=== PATIENT | male | born 1985 | race Caucasian/White ===

== ENCOUNTER 2022-11-24 10:31 | Outpatient (REF) | payer MEDICAID, OTHER, SELFPAY ==
[2022-11-24 13:10] LABS: MANUAL DIFF FLAG NO
[2022-11-24 13:35] LABS: Basophils Percent Auto 0.6 % (0-2); Eosinophils Absolute Auto 0.1 X10*3/uL (0.0-0.4); Eosinophils Percent Auto 1.6 % (0-4); Hematocrit 49.4 % (42.0-52.0); Hemoglobin 16.1 g/dl (14.0-18.0); Imm Gran Abs Auto 0.01 X10*3/uL (0.00-0.03); Imm Gran Pct Auto 0.2 % (0.0-0.4); Lymphocytes Absolute Auto 1.6 X10*3/uL (1.2-4.9); Lymphocytes Percent Auto 31.3 % (20-40); Mean Corpuscular HGB Conc 32.6 g/dl (31.0-36.0); Mean Corpuscular Hemoglobin 28.9 pg (27.0-33.0); Mean Corpuscular Volume 88.5 fL (80.0-98.0); Mean Platelet Volume 10.9 fL (9.4-12.4); Monocytes Absolute Auto 0.5 X10*3/uL (0.1-1.2); Monocytes Percent Auto 10.8 % (2-11); Neutrophils Absolute Auto 2.8 x10*3/uL (2.0-8.3); Neutrophils Percent Auto 55.5 % (45-73); Platelet Count 255 X10*3/uL (160-400); Red Blood Count 5.58 X10*6/uL (4.60-5.80); Red Cell Distribution Width 11.7 % (11.0-16.0)
[2022-11-24 15:13] LABS: CT PCR NOT DETECTED (Not Detect.); NG PCR NOT DETECTED (Not Detect.)
[2022-11-24 15:19] LABS: Estimated Average Glucose 94 mg/dL; Hemoglobin A1c % 4.9 %
[2022-11-25 02:04] LABS: Alanine Aminotransferase 28 U/L (0-40); Albumin Level 4.6 g/dL (3.5-5.0); Alkaline Phosphatase 48 U/L (39-117); Anion Gap 10 (12-20); Aspartate Amino Transferase 18 U/L (5-37); Bilirubin Total 1.1 mg/dL (0.0-1.0); Blood Urea Nitrogen 12 mg/dL (9-16); Calcium 9.5 mg/dL (8.4-10.2); Carbon Dioxide 28 mmol/L (22-29); Chloride 105 mmol/L (96-108); Cholesterol 198 mg/dL; Estimated Glomerular Filt Rate > 60; Glucose Random 93 mg/dL (60-115); HDL Cholesterol 49 mg/dL; LDL Cholesterol Calculated 132 mg/dl; Potassium 4.1 mmol/L (3.3-5.1); Sodium 139 mmol/L (135-145); TSH reflex Free T4 0.96 uIU/mL (0.32-4.0); Total Protein 7.5 g/dL (6.5-8.0); Triglycerides 87 mg/dL
[2022-11-25 05:13] LABS: HBS Num1 0.28 mIU/mL (0-7.99); HBc Num1 0.18 S/CO (0.00-0.79); HIV AB/AG Nonreactive (Nonreactive); HIV Num 1 0.05 S/CO (0.00-0.99); Hepatitis B Core Antibody Nonreactive (Nonreactive); Hepatitis B Surface Antigen Negative (Negative); ~Hepatitis B Surface Antibody NONREACTIVE (Nonreactive)
[2022-11-25 05:18] LABS: ~HepC Num1 0.11 S/CO (0.00-0.79); ~Hepatitis C Antibody Nonreactive (Nonreactive)
[2022-11-26 08:16] LABS: Syphilis Screen Nonreactive (Nonreactive)
[2022-11-26 15:14] LABS: Gliadin Deamidated IgA Ab <1.0 U/mL; Gliadin Deamidated IgG Ab <1.0 U/mL; Transglutaminase Ab IgG <1.0 U/mL; Transglutaminase IgA <1.0 U/mL
[2022-11-26 16:48] LABS: Immunoglobulin A 182 mg/dL (47-310)
[2022-11-27 02:03] LABS: TS Negative Control Passed; TS Panel A 0; TS Panel B 0; TS Positive Control Passed; TSpotTB Negative (Negative)
[2022-12-01 13:53] LABS: Endomysial IgA Antibody Negative (Negative)
== END 2022-11-24 10:32 | disposition home or self-care (01) ==
LOC: HO.HHCL 10:31
PROVIDERS: Visit Provider Student in an Organized Health Care Education/Training Program
DX: Z00.00 Encounter for general adult medical examination without abnormal findings (principal); Z11.4 Encounter for screening for human immunodeficiency virus [HIV]; Z11.1 Encounter for screening for respiratory tuberculosis
CPT/HCPCS: 0353U; 80053; 80061; 82784; 83036; 84443; 85025; 86231; 86258; 86364; 86481; 86704; 86706; 86780; 86803; 87340; 87389

== ENCOUNTER 2022-12-13 13:52 | Outpatient (REF) | payer MEDICAID, OTHER, SELFPAY ==
--- NOTE | ~2022-12-13 | US_ITS ---
EXAMINATION: US THYROID CLINICAL INFORMATION: Nontoxic single thyroid nodule. COMPARISON: None available. TECHNIQUE: Linear transducer tuttle-scale and color Doppler examination with attention to the region of the thyroid. FINDINGS: SIZE: Measurements of the thyroid lobes and nodules are given in sagittal, anteroposterior and transverse dimensions respectively. Right Thyroid Lobe: 5.6 x 1.7 x 1.8 cm, volume 9.0 mL. Parenchyma: The gland echotexture is homogeneous. Thyroid vascularity is normal. Left Thyroid Lobe: 5.0 x 1.4 x 1.8 cm, volume 6.6 mL. Parenchyma: The gland echotexture is homogeneous. Thyroid vascularity is normal. Isthmus: 0.5 cm in maximum AP dimension. Estimated total number of nodules greater than or equal to 1 cm: 0. High Tension Tester nodules are described as follows: 1. Location: Left lateral/mid. Size: 0.3 x 0.4 x 0.4 cm, volume 0.02 mL. Nodule characteristics: Composition: Cystic(0). ACR TI-RADS total points: 0 ACR TI-RADS category: 1 NODES: No lymphadenopathy is seen in the tissue surrounding the thyroid gland. US/US thyroid IMPRESSION: A small left thyroid lobe nodule is seen, as detailed. This requires no imaging follow-up. ACR TI-RADS RECOMMENDATION REFERENCE: Ultrasound-guided fine-needle aspiration, followup ultrasound, no further follow up. * TR1 (0 point) and TR2 (2 points): No FNA or follow up. * TR3 (3 points): FNA if more than or equal to 2.5 cm in maximum dimension, followup ultrasound in 1, 3 and 5 years if 1.5 to 2.4 cm in maximum dimension. * TR4 (4-6 points): FNA if more than or equal to 1.5 cm in maximum dimension, followup ultrasound in 1, 2, 3 and 5 years if 1 to 1.4 cm in maximum dimension. * TR5 (more than or equal to 7 points): FNA if more than or equal to 1 cm in maximum dimension, followup ultrasound every year for 5 years if 0.5 to 0.9 cm in maximum dimension. * TR3, TR4 or TR5 nodules that are below the size threshold for followup receive no follow up.
--- NOTE | ~2022-12-13 | US_ITS ---
ULTRASOUND SOFT TISSUES RIGHT KNEE CLINICAL: Palpable lump of the medial right knee. TECHNIQUE: Using a linear array transducer with grayscale and color modalities, ultrasound examination is performed of the medial right knee soft tissues, at the area of clinical concern. FINDINGS: Corresponding with the palpable finding, a patent superficial varicosity is seen. This shows a diameter of 1.1 cm, with the reflux time of 2012 ms. No mass or fluid collection is seen. There is no lymphadenopathy or foreign body. US/US extremity nonvascular IMPRESSION: Corresponding with the palpable finding in the right knee medial soft tissue, a patent, refluxing varicosity is noted.
== END 2022-12-13 13:53 | disposition home or self-care (01) ==
LOC: HO.US 13:52
PROVIDERS: PCP Student in an Organized Health Care Education/Training Program; Visit Provider Student in an Organized Health Care Education/Training Program
DX: R22.41 Localized swelling, mass and lump, right lower limb (principal); E04.1 Nontoxic single thyroid nodule
CPT/HCPCS: 76536; 76882

== ENCOUNTER 2022-12-20 10:32 | Outpatient (REF) | payer MEDICAID, OTHER, SELFPAY | END 2022-12-20 10:33 | disposition home or self-care (01) | LOC: HO.HHCL 10:32 | PROVIDERS: Visit Provider Student in an Organized Health Care Education/Training Program | DX: Z00.00 Encounter for general adult medical examination without abnormal findings (principal) | CPT/HCPCS: 87177; 87209 ==

== ENCOUNTER 2024-09-14 12:37 | Outpatient (REF) | payer MEDICAID, OTHER, SELFPAY ==
--- OUTSIDE RECORDS SUMMARY | 2024-09-14 12:39 | XMS_ITS | Encounter Summary ---
Author Organization [employer] Address [address] [facility] 7t [place] [address] Care Team Providers Care Machine Design Checker Name Role Phone Keiko Devlin MD Primary Care Pro vider Reason for Visit * Reason Onset Date Comments Lab Orders 09/10/2024 Encounter Details Date Type Department Care Team ([facility] st Contact Info) Description 09/10/2024 Telephone [facility] MEDICINE [address] [place], [place] [phone] Keiko Devlin MD [address] [place], [place] [phone] Lab Orders Social History Tobacco Use Types Packs/Day Years Used Date Smoking Tobacco: Former Cigarettes Passive Smoke Exposure: Never Smokeless Tobacco: Never Comments:Started at 15 y of age and stopped at 29 y of age -stopped already x 8 years Alcohol Use Standard Drinks/Week Comments Yes 0 (1 standard drink = 0.6 oz pur e alcohol) social Depression Answer Date Recorded Patient Health Questionnaire-9 Score 0 12/22/2022 Housing Stability Answer Date Recorded What is your housing situation today? I have judy nino 02/21/[address] you li ve. Do you have problems with any of the following? None of the above 02/21/2023 Food Insecurity Answer Date Recorded Within the past 12 months, y ou worried that your food would run out before you got money to buy more: Never True 02/21/2023 Within the past 12 months,th e food you bought just didn't last and you didn't have enough money to get more: Never True Transportation Answer Date Recorded In the past 12 months, has l ack of transportation kept you from medical appts, meetings, work or from getting things needed for daily living? No 02/21/2023 Utilities Answer Date Recorded In the past 12 months, has t he electric, gas, oil or water company threatened to shut off services in your home? No 02/21/2023 Depression Answer Date Recorded Patient Health Questionnaire-2 Score 0 12/22/2022 Sex and Gender Information Value Date Recorded Sex Assigned at Male 09/30/2022 12:23 PM EDT Legal Sex Male 12:07 PM EDT Gender Identity Male 09/30/2022 12:23 PM EDT Sexual Orientation Straight 11/24/2022 1: 56 PM EDT documented as of this encounter Miscellaneous Notes * Telephone Encounter - Scarlet Maxwell MA - 09/10/2024 1:48 PM EDT Called to see if had labs pending prier to next appointment. Passenger Tire Inspector informed none are due at this time. documented in this encounter Plan of Treatment Not on file documented as of this encounter Visit Diagnoses Not on filedocumented in this encounter Additional Health Concerns Assessment Noted Time PHQ-9 Depression Total Score: 0 12/23/19 10:28 AM EDT documented as of this encounter Care Teams Machine Design Checker Relationship Specialty Start Date End Date Keiko Devlin MD [address] [place] [id number] PCP - General Internal Medicine 11/24/22 documented as of this encounter
--- OUTSIDE RECORDS SUMMARY | 2024-09-14 12:39 | XMS_ITS | Encounter Summary ---
Author Organization [employer] Address [address] [facility] 7t [place] [address] Care Team Providers Care Credit Collection Associate Name Role Phone Keiko Devlin MD Primary Care Pro vider Reason for Visit * Reason Onset Date Comments chartprep 09/13/2024 Encounter Details Date Type Department Care Team ([facility] st Contact Info) Description 09/13/2024 Telephone [facility] MEDICINE [address] [place] [address] Keiko Devlin MD [address] [place] [address] chartprep Social History Tobacco Use Types Packs/Day Years Used Date Smoking Tobacco: Former Cigarettes Passive Smoke Exposure: Never Smokeless Tobacco: Never Comments:Started at 15 y of age and stopped at 29 y of age -stopped already x 8 years Alcohol Use Standard Drinks/Week Comments Yes 0 (1 standard drink = 0.6 oz pur e alcohol) social Depression Answer Date Recorded Patient Health Questionnaire-9 Score 2 09/14/2024 Patient Health Questionnaire-9 Score 2 09/14/2024 Last PHQ-9: Questionnaire Data Not on file 0 09/14/2024 Housing Stability Answer Date Recorded What is [...] Answer Date Recorded Patient Health Questionnaire-2 Score 2 09/14/2024 Sex and Gender Information Value Date Recorded Sex Assigned at Male 09/30/2022 12:23 PM EDT Legal Sex Male 12:07 PM EDT Gender Identity Male 09/30/2022 12:23 PM EDT Sexual Orientation Straight 11/24/2022 1: 56 PM EDT documented as of this encounter Miscellaneous Notes * Telephone Encounter - Caroline Morales MA - 09/13/2024 10:27 AM EDT ..Chart Prep Labs: not applicable Images: not applicable Vaccines due: Covid Due, Tdap Due, Hep B Due, and Flu Due Referrals: Not Applicable Screenings: Not Applicable Overdue care gaps: Sbirt, Disability , and Oral Health documented in this encounter Plan of Treatment Not on file documented as of this encounter Visit Diagnoses Not on filedocumented in this encounter Additional Health Concerns Assessment Noted Time PHQ-9 Depression Total Score: 0 12/23/19 10:28 AM EDT documented as of this encounter Care Teams Credit Collection Associate Relationship Specialty Start Date End Date Keiko Devlin MD [address] [place] [id number] PCP - General Internal Medicine 11/24/22 documented as of this encounter
--- OUTSIDE RECORDS SUMMARY | 2024-09-14 12:40 | XMS_ITS | Referral Summary ---
Author Organization [facility] Address [address] [place] [address] Care Team Providers Care Stone Layer Name Role Phone Keiko Devlin Primary Care Provider [phone] Allergies No known active allergies Medications No known medications Active Problems Problem Noted Date Diagnosed Date Irritable bowel syndrome with diarrhea Family history of gastric cancer 07/08/2023 Family history of colon cancer 07/08/2023 Social History Tobacco Use Types Packs/Day Years Used Date Smoking Tobacco: Former Cigarettes Q uit: 2014 Smokeless Tobacco: Never Alcohol Use Standard Drinks/Week Comments Yes 0 (1 standard drink = 0.6 oz pur e alcohol) occaisonal Sex and Gender Information Value Date Recorded Sex Assigned at Not on file Legal Sex Male 11:49 AM EDT Gender Identity Not on file Sexual Orientation Not on file Last Filed Vital Signs Vital Sign Reading Time Taken Comments Blood Pressure 135/76 07/08/2023 11:04 AM EST Pulse 54 07/08/2023 11:04 AM EST Temperature 36.2 ??C (97.2 ??F) 07/08/2023 11:[address] Respiratory Rate 18 07/08/2023 11:04 AM EST Oxygen Saturation 97% 07/08/2023 11:04 AM EST Inhaled Oxygen Concentration - - Weight 96 kg (211 lb 9.6 oz) 07/08/2023 11:04 AM EST Height 177 cm (5' 9.69 ) 07/08/2023 11:04 AM EST Body Mass Index 30.63 07/08/2023 11:04 AM EST Plan of Treatment Not on file Insurance [employer] HS[employer] Care Teams Stone Layer Relationship Specialty Start Date End Date Keiko Devlin PCP - General 11/26/22
--- OUTSIDE RECORDS SUMMARY | 2024-09-14 12:40 | XMS_ITS | Encounter Summary ---
Author Organization [employer] Address [address] [facility] [address] [place] [address] Care Team Providers Care Engineer Fishing Vessel Name Role Phone Keiko Devlin MD Primary Care Pro vider Keiko Devlin MD Primary Care Pro vider Reason for Visit * Reason Onset Date Comments New patient Appt 09/30/2022 Encounter Details Date Type Department Care Team ([facility] st Contact Info) Description 09/30/2022 Telephone [facility] MEDICINE [address] [place] [address] Keiko Devlin MD [address] [place] [address] New patient Appt Social History Tobacco Use Types Packs/Day Years Used Date Smoking Tobacco: Never Assessed Sex and Gender Information Value Date Recorded Sex Assigned at Male 09/30/2022 12:23 PM EDT Legal Sex Male 12:07 PM EDT Gender Identity Male 09/30/2022 12:23 PM EDT Sexual Orientation Straight 11/24/2022 1: 56 PM EDT documented as of this encounter Miscellaneous Notes * Telephone Encounter - Regina Greenfield - 09/30/2022 12:30 PM EDT PAR Regina Gann called [facility] Film Processing Supervisor to Offer ETIOLOGY TEACHER appt to Pt. Pt demographics and insurance information were verified. Pt reports the following medical/history conditions: Stomach Alcer. Pt is not taking any medication at this time. Pt given ETIOLOGY TEACHER appt with on 11/24/[address] Lynn @ 9:15 am. Pt will be sent appt reminder card and medical release form and agrees to complete and to return to medical records prior to ETIOLOGY TEACHER appt. documented in this encounter Plan of Treatment Not on file documented as of this encounter Visit Diagnoses Not on filedocumented in this encounter Care Teams Engineer Fishing Vessel Relationship Specialty Start Date End Date Keiko Devlin MD [address] [place] [address] PCP - General Internal Medicine 09/30/22 10/06/22 Keiko Devlin MD [address] [place] [address] PCP - General Internal Medicine 11/24/22 documented as of this encounter
--- OUTSIDE RECORDS SUMMARY | 2024-09-14 12:40 | XMS_ITS | Encounter Summary ---
Author Organization [employer] Address [address] [facility] 7t [place] [address] Care Team Providers Care Fourth Mate Name Role Phone Keiko Devlin MD Primary Care Pro vider Encounter Details Date Type Department Care Team ([facility] st Contact Info) Description 12/14/2022 Telephone [facility] MEDICINE [address] [place], [place] [phone] Keiko Devlin MD [address] [place] [address] Social History Tobacco Use Types Packs/Day Years Used Date Smoking Tobacco: Former Cigarettes Passive Smoke Exposure: Never Smokeless Tobacco: Never Comments:Started at 15 y of age and stopped at 29 y of age -stopped already x 8 years Alcohol Use Standard Drinks/Week Comments Yes 0 (1 standard drink = 0.6 oz pur e alcohol) social Sex and Gender Information Value Date Recorded Sex Assigned at Male 09/30/2022 12:23 PM EDT Legal Sex Male 12:07 PM EDT Gender Identity Male 09/30/2022 12:23 PM EDT Sexual Orientation Straight 11/24/2022 1: 56 PM EDT documented as of this encounter Miscellaneous Notes * Telephone Encounter - Izzy Bright - 12/14/2022 3:56 PM EDT Tc from [facility] pt went to [facility] for a Helicobacter pylori, urea breath test. Was told PCP has to call to schedule appointment. Any questions, please contact paolo at [phone] documented in this encounter Plan of Treatment Not on file documented as of this encounter Visit Diagnoses Not on filedocumented in this encounter Care Teams Fourth Mate Relationship Specialty Start Date End Date Keiko Devlin MD [address] [place] [id number] PCP - General Internal Medicine 11/24/22 documented as of this encounter
--- OUTSIDE RECORDS SUMMARY | 2024-09-14 12:40 | XMS_ITS | Encounter Summary ---
Author Organization [employer] Address [address] [facility] 7t [place] [address] Care Team Providers Care Structures Assembler Name Role Phone eKiko Devlin MD Primary Care Pro vider Encounter Details Date Type Department Care Team (Latest Contact Info) Description 09/14/2024 Travel Social History Tobacco Use Types Packs/Day Years Used Date Smoking Tobacco: Former Cigarettes Passive Smoke Exposure: Never Smokeless Tobacco: Never Comments:Started at 15 y of age and stopped at 29 y of age -stopped already x 9 years Alcohol Use Standard Drinks/Week Comments Yes [...] PM EDT documented as of this encounter Plan of Treatment Not on file documented as of this encounter Visit Diagnoses Not on filedocumented in this encounter Additional Health Concerns Assessment Noted Time PHQ-9 Depression Total Score: 2 09/15/19 11:50 AM EDT documented as of this encounter Care Teams Structures Assembler Relationship Specialty Start Date End Date Keiko Devlin MD [address] [place] [id number] PCP - General Internal Medicine 11/24/22 documented as of this encounter
--- OUTSIDE RECORDS SUMMARY | 2024-09-14 12:40 | XMS_ITS | Encounter Summary ---
Author Organization [employer] Address [address] [facility] 7t [place] [address] Care Team Providers Care Solutions Delivery Consultant Name Role Phone Keiko Devlin MD Primary Care Pro vider Encounter Details Date Type Department Care Team (Late st Contact Info) Description 09/14/2024 11:30 AM EDT Office Visit [facility] MEDICINE [address] [place], [place] [phone] Keiko Devlin MD [address] [place] [address] Annual physical exam (Primary Dx); Dietary counseling; Exercise counseling Social History Tobacco Use Types Packs/Day Years [...] PM EDT documented as of this encounter Last Filed Vital Signs Vital Sign Reading Time Taken Comments Blood Pressure 102/62 09/14/2024 11:21 AM EDT Pulse 52 09/14/2024 11:21 AM EDT Temperature 36.1 ??C (96.9 ??F) 09/14/2024 11:21 AM E DT Respiratory Rate 20 09/14/2024 11:21 AM EDT Oxygen Saturation 98% 09/14/2024 11:21 AM EDT Inhaled Oxygen Concentration - - Weight 96.6 kg (213 lb) 09/14/2024 11:21 AM EDT Height 179.8 cm (5' 10.8 ) 09/14/2024 11:21 AM E DT Body Mass Index 29.88 09/14/2024 11:21 AM EDT documented in this encounter Plan of Treatment Scheduled Orders Name Type Priority Associated Diagnoses Orde r Schedule CBC Lab Routine Annual physical exam Expected: 09/14/2024 (Approximate), Expires: 09/14/2025 Chlamydia/N. Gonorrhoeae RNA, TMA, Urogenitial Microbiology Routine Annual physical exam Expected: 09/14/2024 (Approximate), Expires: 09/14/2025 Comprehensive Metabolic Panel Lab Routine Annual physical exam Expected: 09/14/2024 (Approximate), Expires: 09/14/2025 Hemoglobin A1c Lab Routine Annual physical exam Expected: 09/14/2024 (Approximate), Expires: 09/14/2025 Hepatitis B Core Antibody, Total Lab Routine Annual physical exam Expected: 09/14/2024 (Approximate), Expires: 09/14/2025 Hepatitis B Surface Antibody, Qualitative Lab Routine Annual physical exam Expected: 09/14/2024 (Approximate), Expires: 09/14/2025 Hepatitis B surface antigen, EIA Lab Routine Annual physical exam Expected: 09/14/2024 (Approximate), Expires: 09/14/2025 Hepatitis C Antibody with Reflex to HCV, RNA, Quantitative, Real-Time PCR Lab Routine Annual physical exam Expected: 09/14/2024 (Approximate), Expires: 09/14/2025 HIV-1/2 Antigen and Antibodies, Fourth Generation, with Reflexes Lab Routine Annual physical exam Expected: 09/14/2024 (Approximate), Expires: 09/14/2025 Lipid Panel, Standard Lab Routine Annual physical exam Expected: 09/14/2024 (Approximate), Expires: 09/14/2025 Syphilis Screen Lab Routine Annual physical exam Expected: 09/14/2024 (Approximate), Expires: 09/14/2025 TSH with Reflex to Free T4 Lab Routine Annual physical exam Expected: 09/14/2024 (Approximate), Expires: 09/14/2025 documented as of this encounter Visit Diagnoses Diagnosis Annual physical exam- Primary Routine general medical examination at a health care facility Dietary counseling Dietary surveillance and counseling Exercise counseling documented in this encounter Additional Health Concerns Assessment Noted Time PHQ-9 Depression Total Score: 2 09/15/19 25 11:50 AM EDT documented as of this encounter Care Teams Solutions Delivery Consultant Relationship Specialty Start Date End Date Keiko Devlin MD [address] [place] [id number] PCP - General Internal Medicine 11/24/22 documented as of this encounter
--- OUTSIDE RECORDS SUMMARY | 2024-09-14 12:40 | XMS_ITS | Clinical Summary ---
Author Organization [employer] Address [address] [facility] [address] [place] [address] Care Team Providers Care High Speed Warper Tender Name Role Phone Keiko Devlin MD Primary Care Pro vider Allergies No known active allergies Medications Multiple Vitamin (multivitamin) tablet Take 1 tablet by mouth Once per day. Active cephalexin (Keflex) 500 MG capsule Take 1 capsule (500 mg) by mouth 2 times daily for 5 days. 10 capsule 5 09/20/19 25 Active Omeprazole 20 MG tablet delayed-release Take 20 mg by mouth in the morning. 30 tablet 3 3 09/15/19 25 Discontinu ed(Other) Active Problems Problem Noted Date Diagnosed Date Health care maintenance 11/24/2022 Assessment & Plan (12/22/2022 6:02 PM EDT): -Quantiferon 12/22/2022 Neg -vaccines: s/P tdap in 2019 per pt ,never covid 19 vaccine-refuse , reports hx of HPV vaccine ,hep B not immune-refuse vaccination Assessment & Plan (11/24/2022 2:07 PM EDT): -vaccines: s/P tdap in 2020 per pt ,never covid 19 vaccine-refuse , reports hx of HPV vaccine -labs x annual exam today in fasting -pt agreed to have STI testing including HIV to have for baseline and Tb test -came recently to live [place] in this year History of peptic ulcer disease 11/24/2022 Assessment & Plan (12/22/2022 5:59 PM EDT): Pt w hx of PUD , h pylori + s/p tx -denies to have PAULY done -PAULY here on 12/2022 is neg -result scanned in system -from records had EGD 2019: duodenal ulcer x2 and chronic gastritis Pt w mother and maternal GM w gastric ca Pt w ongoing bloating sensation and on and off diarrhea Celiac dx panel serology 11/2022 Neg -referred to GI x ulcer dx and relevant fx hx -per pt has apt for next year in 12/2023? -Gave # of GI clinic at [facility] to check when he can be seen earlier -continue PPi x now daily for this month but after that only prn -stools O&P x3 already obtained sample per pt left this week at lab -will call pt if abnormal results Assessment & Plan (11/24/2022 2:02 PM EDT): Pt w hx of PUD , h pylori + s/p tx -denies to have PAULY done -from records had EGD 2019: duodenal ulcer x2 and chronic gastritis Pt w mother and maternal GM w gastric ca Pt w ongoing bloating sensation and on and off diarrhea -referred today to GI x ulcer dx and relevant fx hx -start PPi x now -will do today h pylori UBT -denies taking any PPIs xlast 2 weeks -stools O&P x3,celiac dx panel Thyroid cyst 11/24/2022 Overview (12/22/2022): -pt brought records thyroid US 08/2021: Colloid formation of thyroid gland -thyroid US : 12/13/22: there is 1 small left thyroid nodule ,Size: 0.3 x 0.4 x 0.4 cm, volume 0.02 mL. Nodule characteristics: Composition: Cystic(0). ACR TI-RADS total points: 0 ,ACR TI-RADS category: 1 No lymphadenopathy is seen in the tissue surrounding the thyroid gland. This requires no imaging follow-up. Assessment & Plan (12/22/2022 6:00 PM EDT): -pt brought records thyroid US 08/2021: Colloid formation of thyroid gland -thyroid US : 12/13/22: there is 1 small left thyroid nodule ,Size: 0.3 x 0.4 x 0.4 cm, volume 0.02 mL. Nodule characteristics: Composition: Cystic(0). ACR TI-RADS total points: 0 ,ACR TI-RADS category: 1 No lymphadenopathy is seen in the tissue surrounding the thyroid gland. This requires no imaging follow-up. 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 This shows a diameter of 1.1 cm, with the reflux time of 2012 ms. No mass or fluid collection is seen. There is no lymphadenopathy or foreign body. -referred already to vascular -apt on 12/27/2022 Assessment & Plan (11/24/2022 2:00 PM EDT): Reports right lower ext cramping at night and has small to mod size varicocele veins -referred today to vascular Obesity 11/24/2022 Assessment & Plan (12/22/2022 6:01 PM EDT): BMI is 30.4 in part for muscle mass -Advised pt to improve diet and exercise,discussed healthy life style -offered today historical guide referral but refusing -will monitor here in 6 mo to monitor weight Assessment & Plan (11/24/2022 2:05 PM EDT): Advised pt to improve diet and exercise,discussed healthy life style -will discuss about nutritinist referral at next apt Encounters Date Type Department Care Team Description 09/14/2024 11:30 AM EDT Office Visit [facility] [address] [place] [phone] Keiko Devlin MD Annual physical exam (Primary Dx); Dietary counseling; Exercise counseling 09/14/2024 Travel 09/13/2024 Telephone [facility] [address] [place] [phone] Keiko Devlin MD chartprep 09/10/2024 Telephone [facility] [address] [place] [address] Keiko Devlin MD Lab Orders from Last 3 Months Family History Medical History Relation Name Comments gastric ca Maternal Grandmother gastric ca Mother Relation Name Status Comments Maternal Grandmother Mother Social History Tobacco Use Types Packs/Day Years [...] Orientation Straight 11/24/2022 1: 56 PM EDT Last Filed Vital Signs Vital Sign Reading [...] Mass Index 29.88 09/14/2024 11:21 AM EDT Plan of Treatment Health Maintenance Due Date Last Done Comments HIV Screening 1984 Lipid Panel 1984 Family Planning (PISQ) 10/17/1999 Hepatitis C Screening 2002 DTaP/Tdap/Td Vaccines (1 - Tdap) 10/17/2003 Hepatitis B Vaccines (1 of 3 - 19+ 3-dose series) 10/17/2003 Dental Oral Exam 08/24/2023 02/21/2023 Dental Prophylaxis 12/13/2023 06/13/2023, 02/21/2023 COVID-19 Vaccine ( - 2023-2 5 season) 2024 Influenza Vaccine (#1) 2024 Dental X-Ray: Bitewings 02/23/2024 02/21/2023 SDOH Screening 06/22/2024 06/22/2023 Alcohol/Substance Use Screening 09/14/2025 09/14/2024 Depression Screening 09/14/2025 09/14/2024, 09/14/2024 Tobacco Screening 09/14/2025 09/14/2024 Dental X-Ray: Full Mouth 02/22/2026 02/21/2023 Zoster Vaccines (1 of 2) 2034 RSV Patients and Patients Aged 60 years or older (1 - 1-dose 75+ series) 10/17/2059 HIB Vaccines Aged Out No longer eligi ble based on patient's age to complete this topic HPV Vaccines Aged Out No longer eligi ble based on patient's age to complete this topic Hepatitis A Vaccines Aged Out No long er eligible based on patient's age to complete this topic IPV Vaccines Aged Out No longer eligi ble based on patient's age to complete this topic Meningococcal Vaccine Aged Out No artie mo eligible based on patient's age to complete this topic Pneumococcal Vaccine: Pediatrics (0 to 5 Years) and At-Risk Patients (6 to 49) Years) Aged Out No longer eligible b ased on patient's age to complete this topic RSV under 20 months Aged Out No longe r eligible based on patient's age to complete this topic Rotavirus Vaccines Aged Out No longer eligible based on patient's age to complete this topic Procedures Procedure Name Priority Date/Time Associated Diagnosis Comments PROPHYLAXIS - ADULT Routine 06/13/2023 3 :00 PM EST INTRAORAL - COMPLETE SERIES OF RADIOGRAPHIC IMAGES Routine 02/21/2023 4:00 PM EDT COMPREHENSIVE ORAL EVALUATION - NEW OR ESTABLISHED PATIENT Routine 02/21/2023 4:00 PM EDT from Last 3 Months or Most Recently Relevant to Health Maintenance [place] [address] [place] [address] LIMITED HSN FULL DENTAL[place] [employer] LIMITED ADULT DENTAL - HSN FULL (MEDICAID) Care Teams High Speed Warper Tender Relationship Specialty Start Date End Date Keiko Devlin MD [address] [place] [address] PCP - General Internal Medicine 11/24/22
--- OUTSIDE RECORDS SUMMARY | 2024-09-14 12:40 | XMS_ITS | Clinical Summary ---
Author Organization [facility] Address [address] [place] [address] Care Team Providers Care Mellowing Machine Operator Name Role Phone Keiko Devlin Primary Care Provider [phone] Allergies No known active allergies Medications No known medications Active Problems Problem Noted Date Diagnosed Date Irritable bowel syndrome with diarrhea Family history of gastric cancer 07/08/2023 Family history of colon cancer 07/08/2023 Family History Medical History Relation Name Comments Stomach cancer Mother Relation Name Status Comments Mother Social History Tobacco Use Types Packs/Day [...] 07/08/2023 11:04 AM EST Plan of Treatment Health Maintenance Due Date Last Done Comments HIV Screening 1984 Hepatitis C Screening 1984 Varicella Vaccines (1 of 2 - 13+ 2-dose series) 1997 Hepatitis B Vaccines (1 of 3 - 19+ 3-dose series) 10/17/2003 DTaP,Tdap,and Td Vaccines (1 - Tdap) 2006 COVID-19 Vaccine (1 - 2023-2 5 season) 2024 Alcohol/Substance Use Screening 05/09/2024 Depression Screening and Follow-Up 05/09/2024 Social Drivers of Health Lillie ual Screening 05/09/2024 Influenza Vaccine (Season Ended) 2025 RSV Vaccine (60+ years old a nd patients) (1 - 1-dose 75+ series) 10/17/2059 Pneumococcal Vaccine: Pediat veronika (0-5 Years) and At-Risk Patients (6-50 Years) Aged Out No longer eligible b ased on patient's age to complete this topic Insurance [facility] HSNO/FREE CARE Care Teams Mellowing Machine Operator Relationship Specialty Start Date End Date Keiko Devlin PCP - General 11/26/22
[2024-09-14 16:24] LABS: Hematocrit 44.6 % (42.0-52.0); Mean Corpuscular HGB Conc 33.6 g/dl (31.0-36.0); Mean Corpuscular Hemoglobin 29.6 pg (27.0-33.0); Mean Platelet Volume 10.9 fL (9.4-12.4); Platelet Count 250 X10*3/uL (160-400); Red Blood Count 5.07 X10*6/uL (4.60-5.80); Red Cell Distribution Width 11.9 % (11.0-16.0); White Blood Count 6.4 X10*3/uL (4.8-10.8)
[2024-09-14 16:30] LABS: Estimated Average Glucose 103 mg/dL; Hemoglobin A1C 127.3286 umol/L; Hemoglobin A1c % 5.2 % (<6.0); Total Hemoglobin (HGBA1C) 3873.0613 umol/L
[2024-09-14 17:36] LABS: Alanine Aminotransferase 37 U/L (0-40); Albumin Level 4.6 g/dL (3.5-5.0); Anion Gap 12 (12-20); Aspartate Amino Transferase 32 U/L (5-37); Bilirubin Total 1.3 mg/dL (0.0-1.0); Blood Urea Nitrogen 13 mg/dL (9-16); Calcium 9.4 mg/dL (8.4-10.2); Carbon Dioxide 28 mmol/L (22-29); Chloride 104 mmol/L (96-108); Cholesterol 169 mg/dL (<200); Estimated Glomerular Filt Rate > 60; Glucose Random 83 mg/dL (60-115); HDL Cholesterol 54 mg/dL (>40); LDL Cholesterol Calculated 103 mg/dL (<100); Potassium 4.2 mmol/L (3.3-5.1); Sodium 140 mmol/L (135-145); Total Protein 7.4 g/dL (6.5-8.0); Triglycerides 63 mg/dL (<150)
[2024-09-14 17:58] LABS: Alkaline Phosphatase 56 U/L (39-117); TSH reflex Free T4 1.23 uIU/mL (0.32-4.0)
[2024-09-15 03:52] LABS: Syphilis Screen Nonreactive (Nonreactive)
[2024-09-15 04:05] LABS: HBc Num1 0.07 S/CO (0.00-0.79); HBsAGNum1 0.42 S/CO (0.00-0.99); HIV AB/AG Nonreactive (Nonreactive); HIV Num 1 0.07 S/CO (0.00-0.99); Hepatitis B Core Antibody Nonreactive (Nonreactive); Hepatitis B Surface Antigen Negative (Negative); ~HepC Num1 0.14 S/CO (0.00-0.79); ~Hepatitis B Surface Antibody NONREACTIVE (Nonreactive); ~Hepatitis C Antibody Nonreactive (Nonreactive)
[2024-09-15 05:10] LABS: CT PCR NOT DETECTED (Not Detect.); NG PCR NOT DETECTED (Not Detect.)
== END 2024-09-14 12:38 | disposition home or self-care (01) ==
LOC: HO.HHCL 12:37
PROVIDERS: Visit Provider Student in an Organized Health Care Education/Training Program
DX: Z00.00 Encounter for general adult medical examination without abnormal findings (principal)
CPT/HCPCS: 80053; 80061; 83036; 84443; 85027; 86704; 86706; 86780; 86803; 87340; 87389; 87491; 87591